=== PATIENT | male | born 1960 | race Caucasian/White ===

== ENCOUNTER 2018-06-11 06:25 | Day surgery (SDC) | payer BC ==
[2018-06-11] MEDS ORDERED: LIDOCAINE 2% MDV (20MG/ML) 20ML VIAL IV ONE (06:26)
[2018-06-11] MEDS ORDERED: PROPOFOL 10 MG/ML VIAL IV ONE (06:26)
--- NOTE | 2018-06-14 09:01 | Operative Note ---
DATE OF SURGERY: SURGEON: Aubrey Todd MD OPERATION: COLONOSCOPY. INDICATIONS: This is a 58-year-old man with history of colon polyps, last colonoscopy about 3 years ago, who presented for colonoscopy. POSTOPERATIVE DIAGNOSES: 1. A 3 mm sessile polyp in the sigmoid colon that was removed by cold biopsy forceps. 2. Poor bowel preparation that limited the study to the sigmoid colon. ANESTHESIA: Sedation is per Anesthesia. Pulse oximetry was monitored throughout the procedure to maintain O2 saturation of 90% or greater. Supplemental oxygen was administered via nasal cannula. Cardiac and vital signs were monitored throughout the duration of the procedure, and they were stable. The procedure of colonoscopy and risks and benefits of the procedure, including the risk of bleeding and perforation, among others, were explained to the patient who voiced understanding and agreed to have the procedure done. Physical examination was performed, and the patient was found stable for sedation. PROCEDURE: The patient was placed in the left lateral position. Sedation was initiated. A digital rectal exam was then performed and showed small external hemorrhoids with no palpable rectal masses. An Olympus PCF-180AL colonscope was then inserted into the rectum and advanced to the sigmoid colon without difficulty. In the sigmoid colon was a 3 mm sessile polyp that was noted and was removed by cold biopsy forceps. Proximally, there was a large amount of solid stool debris that precluded further advancement of the colonoscope. The colonoscope was then withdrawn and the procedure terminated. The patient tolerated the procedure well with any immediate complications. The patient remained with stable vital signs and was transferred to the recovery room. RECOMMENDATIONS: We will give the patient a 2-day bowel preparation and repeat the colonscopy and further recommendations will be forthcoming the results of that. Thank you for allowing me to participate in the care of your patient. CC: DO BISI Malik
== END 2018-06-11 08:28 | disposition home or self-care (01) ==
LOC: HOP 06:25
PROVIDERS: ATTEND Internal Medicine Gastroenterology
DX: Z12.11 Encounter for screening for malignant neoplasm of colon (principal); Z86.010 Personal history of colon polyps; D12.5 Benign neoplasm of sigmoid colon; I10 Essential (primary) hypertension; E78.00 Pure hypercholesterolemia, unspecified

== ENCOUNTER 2018-07-16 10:07 | Day surgery (SDC) | payer BC ==
[2018-07-16] MEDS ORDERED: PROPOFOL 10 MG/ML VIAL IV ONE (10:08)
[2018-07-16] MEDS ORDERED: LIDOCAINE 2% MDV (20MG/ML) 20ML VIAL IV ONE (10:08)
[2018-07-16] MEDS ORDERED: MIDAZOLAM HCL 2MG/2ML VIAL IV ONE (10:08)
--- NOTE | 2018-07-19 11:30 | Operative Note ---
DATE OF SURGERY: 07/16/2018 SURGEON: Aubrey Todd MD OPERATION: COLONOSCOPY. INDICATIONS: This is a 58-year-old male with history of colon polyps who presented for repeat colonoscopy for surveillance after an attempt a couple of months ago that resulted in poor bowel preparation. POSTOPERATIVE DIAGNOSIS: Normal colonic and terminal ileal mucosa with no neoplastic or ulcerative lesions. ANESTHESIA: Sedation is per Anesthesia. Pulse oximetry was monitored throughout the procedure to maintain O2 saturation of 90% or greater. Supplemental oxygen was administered via nasal cannula. Cardiac and vital signs were monitored throughout the duration of the procedure, and they were stable. The procedure of colonoscopy and risks and alternatives of the procedure, including the risk of bleeding and perforation, among others, were explained to the patient who voiced understanding and agreed to have the procedure done. Physical examination was performed, and the patient was found stable for sedation. PROCEDURE: The patient was placed in the left lateral position. Sedation was initiated. A digital rectal exam was performed and showed some mild external hemorrhoids with no palpable rectal masses. An Olympus PCF-180AL colonoscope was then inserted into the rectum under direct visualization. It was advanced to the cecum without difficulty. The ileocecal valve and appendiceal orifice were identified and photographed. The colonic mucosa was carefully examined upon introduction of the colonoscope. There were no lesions noted. The ileocecal valve was intubated and terminal ileal mucosa was inspected for about 10 cm and it appeared normal. The colonoscope was then withdrawn while carefully examining the colonic mucosal surfaces. No lesions were noted. In the rectum, retroflexion was performed and grade 1 internal hemorrhoids were noted. The colonoscope was then withdrawn and the procedure was terminated. The patient tolerated the procedure well without any immediate complications. The patient remained with stable vital signs and was transferred to the recovery room. RECOMMENDATIONS: 1. The patient should be on a high-fiber diet. 2. The patient is to have a repeat colonoscopy in 5 years. Thank you for allowing me to participate in the care of your patient. CC: Sachin ARECHIGA
== END 2018-07-16 12:15 | disposition home or self-care (01) ==
LOC: HOP 10:07
PROVIDERS: ATTEND Internal Medicine Gastroenterology
DX: Z12.11 Encounter for screening for malignant neoplasm of colon (principal); Z86.010 Personal history of colon polyps
CPT/HCPCS: 00812; G0105